=== PATIENT | female | born 1925 | race Caucasian/White ===

== ENCOUNTER 2017-06-22 16:19 | Inpatient (IN) | payer MEDICARE ==
[~2017-06-22] VITALS: Ht 162.6 cm; Wt 81.6 kg
--- NOTE | 2017-06-22 16:24 | NUR ---
DR JOYA AT THE BEDSIDE FOR EVAL AND EXAM.
[2017-06-22] MEDS ORDERED: METH2.5T PO (16:39)
[2017-06-22] MEDS ORDERED: LEVO25TA9 PO (16:39)
[2017-06-22] MEDS ORDERED: ACET-2154 PO (16:39)
[2017-06-22] MEDS ORDERED: PANT40TA2 PO (16:39)
[2017-06-22] MEDS ORDERED: NEBI10TA2 PO (16:39)
[2017-06-22] MEDS ORDERED: FOLI1TAB16 PO (16:39)
[2017-06-22] MEDS ORDERED: ASCO500C16 PO (16:39)
[2017-06-22] MEDS ORDERED: MAGN400O6 PO (16:39)
[2017-06-22] MEDS ORDERED: CELE200C PO (16:39)
[2017-06-22] MEDS ORDERED: AMLO2.5T PO (16:39)
[2017-06-22] MEDS ORDERED: [UNRECOGNIZED DRUG - REMARK] (16:39)
[2017-06-22] MEDS ORDERED: ONDANSETRON IV *ER 4 MG/2 ML VIAL IV ONE (16:45)
[2017-06-22 16:51] LABS: *BILIRUBIN,URIN NEGATIVE (NEGATIVE); *BLOOD, URINE Trace-lysed (NEGATIVE); *CLARITY,URINE CLOUDY (CLEAR); *COLOR,URINE YELLOW (YELLOW); *KETONES,URINE NEGATIVE (NEGATIVE); *PROTEIN,URINE 1+ (NEGATIVE); *UROBILINOGEN,URINE 0.2 E.U./dl (NORMAL); LEUKOCYTE ESTERASE ,URINE 1+ (NEGATIVE); NITRITE, URINE POSITIVE (NEGATIVE); UGLUCOSE NEGATIVE (NEGATIVE)
[2017-06-22 16:57] LABS: BASOPHILS # (AUTO) 0.1 K/uL (0.0-8.0); BASOPHILS % (AUTO) 0.7 % (0.0-2.0); EOSINOPHILS # (AUTO) 0.4 K/uL (0.0-0.7); EOSINOPHILS % (AUTO) 5.7 % (0.0-7.0); HEMATOCRIT 28.6 % (37-47); HEMOGLOBIN 9.8 G/DL (12.0-16.0); LYMPHOCYTES # (AUTO) 1.2 K/UL (0.8-4.8); LYMPHOCYTES % (AUTO) 14.7 % (20.5-51.5); MEAN CORPUSCULAR HEMOGLOBIN 32.8 UUG (27.0-31.0); MEAN CORPUSCULAR HGB CONC 34 g/dL (32.0-37.0); MEAN CORPUSCULAR VOLUME 96.2 FL (81.0-99.0); MONOCYTES # (AUTO) 0.5 K/UL (0.1-1.30); MONOCYTES % (AUTO) 6.9 % (0.0-11.0); NEUTROPHILS # (AUTO) 5.6 K/UL (1.8-8.9); PLATELET COUNT (AUTO) 209 K/UL (150-450); RED BLOOD CELL COUNT(AUTO) 2.97 MIL/UL (4.2-5.4); WHITE BLOOD COUNT (AUTO) 7.9 K/UL (4.0-11.2)
[2017-06-22 17:01] LABS: BACTERIA,URINE MANY /HPF (NONE SEEN); CARBON DIOXIDE 23 mmol/L (21-32); CHLORIDE 97 mmol/L (98-107); GLUCOSE 181 mg/dL (74-106); MUCUS,URINE FEW /LPF (0-FEW); SQUAMOUS EPITHELIAL CELL,UR MODERATE /HPF (NONE SEEN); UREA NITROGEN, BLOOD 19 mg/dL (7-18); WBC,URINE 80-100 /HPF (0-3)
[2017-06-22 17:14] LABS: ALANINE AMINOTRANSFERASE 85 U/L (14-59); ALKALINE PHOSPHATASE 114 U/L (50-136); ASPARTATE AMINOTRANSFERASE 108 U/L (15-37); BILIRUBIN,DIRECT 0.4 mg/dL (0.0-0.2); BILIRUBIN,TOTAL 0.9 mg/dL (0.2-1.0); TOTAL PROTEIN, SERUM 5.9 g/dL (6.4-8.2)
[2017-06-22] MEDS ORDERED: CEFTRIAXONE 1 G in IV DEXTROSE 5% 50 ML IV ONE (17:15)
[2017-06-22] MEDS ORDERED: IV NORMAL SALINE 1000 ML BAG IV ONE (17:15)
--- NOTE | 2017-06-22 17:27 | NUR ---
PT DENIES N/V AND DIZZINESS, STATES FEELING BETTER.
--- NOTE | 2017-06-22 17:28 | NUR ---
MRSA COLLECTED AND SENT TO LAB. NELONGING LIST COMPLETED.
--- NOTE | 2017-06-22 18:15 | NUR ---
Patient admitted from emergency room with compliants of syncopal episode with nausea and vomiting. Patient reportedly felt dizzy after exercising at [employer]. Patient previously went to [facility] with low sodium level. Patient current sodium is 130, remaining low. Patient is on a regular diet. Patient reports using a FWW. Patient is alert and oriented times four but a history of dementia is listed on patient record. Patient IV in patent and flushable. No phlebitis of infiltration noted. Patient denies pain. Family at bedside. Patient on 3 liters nasal cannula. Patient noted to desaturate to 88% when on room air. Awaiting orders from .
[2017-06-22 18:30] VITALS: BP 139/85
--- NOTE | 2017-06-22 19:07 | NUR ---
MD is Felix Snow Dnp. Continuing to await orders will endorse to night RN to follow up and get orders.
[2017-06-22 20:00] VITALS: BP 128/68
[2017-06-22] MEDS ORDERED: ACETAMINOPHEN 325 MG TABLET PO PRN (20:00)
[2017-06-22] MEDS ORDERED: ONDANSETRON 4 MG/2 ML VIAL IV PRN (20:00)
[2017-06-22] MEDS ORDERED: Z GUARD REMEDY PASTE 57 GM TUBE TOP PRN (20:00)
[2017-06-22] MEDS ORDERED: MAGNESIUM HYDROXIDE 30 ML LIQUID UDC PO SCH (20:00)
[2017-06-22] MEDS ORDERED: CEFTRIAXONE 1 G in IV DEXTROSE 5% 50 ML IV SCH (20:00)
--- NOTE | 2017-06-22 20:35 | NUR ---
TROPONIN 1.341,DR. YANG NOTIFIED,PATIENT ALERT,ORIENTED,DENIES CHEST PAIN,BP 128/68,SR RATE 83 BPM,PATIENT REPORTS NO NAUSEA OR DIZZINESS.
[2017-06-22] MEDS ORDERED: ASPIRIN EC 81 MG TABLET.DR PO STA (20:54)
--- NOTE | 2017-06-22 21:30 | NUR ---
ASA 81 MG PO GIVEN, STARTED PATIENT ON HEPARIN DRIP PER PROTOCOL RATE 1200 UNITS/HR=24 ML/HR.WILL RECHECK PTT IN 6 HR PER PROTOCOL, PATIENT WAS EDUCATED VERBALIZED UNDERSTANDING.
[2017-06-22] MEDS: HEPARIN/D5W DRIP 500 ML IV PRN (21:32)
[2017-06-23] VITALS: BP 156/82
[2017-06-23] MEDS ORDERED: CARVEDILOL 6.25 MG TABLET PO SCH (00:15)
--- NOTE | 2017-06-23 02:45 | NUR ---
troponin 1.285 trending down,patient asleep easily arouses,heparin drip going on,closely monitor.
[2017-06-23] MEDS: IV NS 1000 ML 1,000 ML IV PRN ×2 (02:55→16:28)
[2017-06-23 04:00] VITALS: BP 118/66
[2017-06-23] MEDS ORDERED: MAGNESIUM HYDROXIDE 30 ML LIQUID UDC PO PRN (04:00)
--- NOTE | 2017-06-23 04:00 | NUR ---
ptt =107.2,hold heparin drip for 60 min and decrease rate by 250 units/hr.
[2017-06-23 04:02] LABS: ALANINE AMINOTRANSFERASE 104 U/L (14-59); ALKALINE PHOSPHATASE 105 U/L (50-136); ASPARTATE AMINOTRANSFERASE 70 U/L (15-37); BILIRUBIN,TOTAL 0.3 mg/dL (0.2-1.0); CARBON DIOXIDE 27 mmol/L (21-32); CHLORIDE 99 mmol/L (98-107); CHOLESTEROL 135 mg/dL (<200); CREATININE 0.9 mg/dL (0.6-1.3); GLUCOSE 127 mg/dL (74-106); HDL CHOLESTEROL 52 mg/dL (40-60); MAGNESIUM 2.2 mg/dL (1.8-2.4); PHOSPHOROUS 4.3 mg/dL (2.5-4.9); POTASSIUM 4.4 mmol/L (3.5-5.1); TOTAL PROTEIN, SERUM 5.7 g/dL (6.4-8.2); TRIGLYCERIDES 43 MG/DL (30-150); UREA NITROGEN, BLOOD 17 mg/dL (7-18)
[2017-06-23 04:04] LABS: BASOPHILS % (AUTO) 0.5 % (0.0-2.0); EOSINOPHILS % (AUTO) 1.4 % (0.0-7.0); HEMATOCRIT 26.8 % (37-47); LYMPHOCYTES % (AUTO) 10.2 % (20.5-51.5); MEAN CORPUSCULAR HEMOGLOBIN 32.3 UUG (27.0-31.0); MEAN CORPUSCULAR HGB CONC 34 g/dL (32.0-37.0); MEAN CORPUSCULAR VOLUME 96.2 FL (81.0-99.0); MONOCYTES % (AUTO) 6.7 % (0.0-11.0); NEUTROPHILS % (AUTO) 81.2 % (38.5-71.5); PLATELET COUNT (AUTO) 199 K/UL (150-450); RED BLOOD CELL COUNT(AUTO) 2.78 MIL/UL (4.2-5.4); WHITE BLOOD COUNT (AUTO) 7.8 K/UL (4.0-11.2)
[2017-06-23 04:05] LABS: EOSINOPHILS # (AUTO) 0.1 K/uL (0.0-0.7); LYMPHOCYTES # (AUTO) 0.8 K/UL (0.8-4.8); MONOCYTES # (AUTO) 0.5 K/UL (0.1-1.30); NEUTROPHILS # (AUTO) 6.4 K/UL (1.8-8.9)
[2017-06-23 04:09] LABS: THYROID STIMULATING HORMONE 3.105 mIU/mL (0.358-3.740)
[2017-06-23] MEDS: LEVOTHYROXINE SODIUM 25 MCG TABLET PO SCH (06:45)
[2017-06-23] MEDS: PANTOPRAZOLE SODIUM 40 MG TABLET.DR PO SCH (06:45)
--- NOTE | 2017-06-23 08:30 | NUR ---
RECEIVED PATIENT IN BED AWAKE ALERT AND ORIENTED WITH HEPARIN DRIP IN PROGRESS AT 19ML/HR WITH NO S/S OF BLEEDING AT THIS TIME.MADE COMFORTABLE WITH NO DISTRESS AT THIS TIME.
[2017-06-23] MEDS: AMLODIPINE 2.5 MG TABLET PO SCH (08:33)
[2017-06-23] MEDS: FOLIC ACID 1 MG TABLET PO SCH (08:34)
[2017-06-23] MEDS: CARVEDILOL 6.25 MG TABLET PO SCH ×2 (08:34→17:18)
[2017-06-23] MEDS ORDERED: HEPARIN SODIUM,PORCINE 5,000 UNITS/ML VIAL IV PRN (08:45)
[2017-06-23] MEDS ORDERED: LEVOTHYROXINE SODIUM 25 MCG TABLET PO SCH (09:00)
[2017-06-23] MEDS ORDERED: PANTOPRAZOLE SODIUM 40 MG TABLET.DR PO SCH (09:00)
[2017-06-23] MEDS ORDERED: CELECOXIB 200 MG CAPSULE PO SCH (09:00)
[2017-06-23 11:07] VITALS: BP 117/51
--- NOTE | 2017-06-23 12:22 | NUR ---
PTT RESULT AT 12 NN IS 67.8, NO CHANGE DONE ON HEPARIN INFUSION. MAINTAINED AT CURRENT RATE AT 950 U/KG. NEXT PTT CHECK ON 06/24/17 AT 0600 HRS ORDERED. ORDERED SHEET FAXED TO PHARMACY.
--- NOTE | 2017-06-23 14:42 | NUR ---
ECHO WAS DONE RESULTS SHOWED RT VENTRICULAR DYSFUNCTION. ORDERED FOR CTA TO R/O PULMONARY EMBOLISM ORDERED. GIVEN ASPIRIN ORDERED. PROCEDURE EXPLAINED TO THE PATIENT AND CONSENT SIGNED ALSO AT BEDSIDE. WILL CONT TO MONITOR.
[2017-06-23] MEDS: ASPIRIN EC 325 MG TABLET.DR PO SCH (14:49)
[2017-06-23 15:19] VITALS: BP 108/52
[2017-06-23] MEDS ORDERED: CEFTRIAXONE 1 G in IV DEXTROSE 5% 50 ML IV SCH (17:00)
[2017-06-23] MEDS ORDERED: IOHEXOL 350 100 ML INFUS..BTL ONE (17:26)
[2017-06-23] MEDS ORDERED: NORMAL SALINE FLUSH 10 ML DISP.SYRIN ONE (17:26)
[2017-06-23] MEDS ORDERED: IV NORMAL SALINE 250 ML IV ONE (17:26)
--- NOTE | 2017-06-23 17:52 | NUR ---
PATIENT IS OUT FOR CT ANGIO VIA BED. BP STABLE, GIVEN BP MEDS BEFORE TRANSPORT. NO OTHER COMPLAINT.
--- NOTE | 2017-06-23 18:35 | NUR ---
PATIENT IS BACK FROM CT [facility], AWAITING FOR RESULTS.
--- NOTE | 2017-06-23 19:40 | NUR ---
CTA CHEST RESULTS ;EXTENSIVE BILATERAL PULMONARY EMBOLI WAS NOTIFIED,NO NEW ORDER,PATIENT RESTING COMFORTABLE NO S/S OF DISTRESS,V/S STABLE,NO C/O CHEST PAIN.NAUSEA OR DIZZINESS,NSR WITH INCOMPLETE RBB.
[2017-06-23 20:00] VITALS: BP 99/72
--- NOTE | 2017-06-23 21:00 | NUR ---
TROPONIN 0.392 TRENDING DOWN,PATIENT ASLEEP,CONTINUE HEPARIN DRIP AT 950 UNITS/HR ORDER,CLOSELY MONITOR.
[2017-06-23] MEDS: HEPARIN/D5W DRIP 500 ML IV PRN (22:43)
[2017-06-24] VITALS: BP 140/63
[2017-06-24 04:00] VITALS: BP 149/67
--- NOTE | 2017-06-24 06:00 | NUR ---
patient in no acute distress,NSR on monitor,patient tries to blow out the nose,states i always have sinus problem,scant of blood noted,off o2,o2 sat 94% room air,instructed patient regarding bleeding precautions.
[2017-06-24] MEDS: LEVOTHYROXINE SODIUM 25 MCG TABLET PO SCH (06:27)
[2017-06-24] MEDS: PANTOPRAZOLE SODIUM 40 MG TABLET.DR PO SCH (06:27)
[2017-06-24 06:42] LABS: BASOPHILS # (AUTO) 0.1 K/uL (0.0-8.0); BASOPHILS % (AUTO) 1.1 % (0.0-2.0); EOSINOPHILS # (AUTO) 0.5 K/uL (0.0-0.7); EOSINOPHILS % (AUTO) 8.6 % (0.0-7.0); HEMATOCRIT 26.7 % (37-47); LYMPHOCYTES # (AUTO) 0.9 K/UL (0.8-4.8); MEAN CORPUSCULAR HEMOGLOBIN 32.8 UUG (27.0-31.0); MEAN CORPUSCULAR HGB CONC 34 g/dL (32.0-37.0); MEAN CORPUSCULAR VOLUME 97.5 FL (81.0-99.0); MONOCYTES # (AUTO) 0.6 K/UL (0.1-1.30); MONOCYTES % (AUTO) 10.6 % (0.0-11.0); NEUTROPHILS # (AUTO) 3.3 K/UL (1.8-8.9); NEUTROPHILS % (AUTO) 63.7 % (38.5-71.5); PLATELET COUNT (AUTO) 214 K/UL (150-450); RED BLOOD CELL COUNT(AUTO) 2.74 MIL/UL (4.2-5.4)
[2017-06-24 06:49] LABS: WHITE BLOOD COUNT (AUTO) 5.4 K/UL (4.0-11.2)
[2017-06-24 07:08] LABS: CARBON DIOXIDE 28 mmol/L (21-32); CHLORIDE 102 mmol/L (98-107); CREATININE 0.9 mg/dL (0.6-1.3); GLUCOSE 112 mg/dL (74-106); MAGNESIUM 2.2 mg/dL (1.8-2.4); PHOSPHOROUS 3.9 mg/dL (2.5-4.9); POTASSIUM 4.4 mmol/L (3.5-5.1); UREA NITROGEN, BLOOD 14 mg/dL (7-18)
[2017-06-24] MEDS: IV NS 1000 ML 1,000 ML IV PRN ×2 (08:13→23:03)
[2017-06-24] MEDS: ASPIRIN EC 325 MG TABLET.DR PO SCH (08:13)
[2017-06-24] MEDS: AMLODIPINE 2.5 MG TABLET PO SCH (08:15)
[2017-06-24] MEDS: FOLIC ACID 1 MG TABLET PO SCH (08:15)
[2017-06-24] MEDS: CARVEDILOL 6.25 MG TABLET PO SCH ×2 (08:15→18:22)
[2017-06-24] MEDS: HEPARIN/D5W DRIP 500 ML IV PRN (09:57)
--- NOTE | 2017-06-24 11:21 | NUR ---
RESULTS OF CTA CHEST RELAYED TO DR YANG SAID TO CONTINUE HEPARIN DRIP HOLD PT TILL VENOUS DUPPLER STUDY OF IRIS LE RESULTS COMES IN
[2017-06-24 11:52] VITALS: BP 140/68
[2017-06-24] MEDS ORDERED: RIVAROXABAN 15 MG TABLET PO SCH (12:45)
--- NOTE | 2017-06-24 14:00 | NUR ---
DR YANG DCD HEPARIN DRIP AND WILL START ON XERALTO AND PO KEFLEX
[2017-06-24] MEDS: CEPHALEXIN MONOHYDRATE 250 MG CAPSULE PO SCH ×2 (14:41→20:57)
[2017-06-24] MEDS ORDERED: RIVAROXABAN 15 MG TABLET PO ONE ×2 (15:00→22:00)
[2017-06-24 16:00] VITALS: BP 137/69
--- NOTE | 2017-06-24 17:00 | NUR ---
SEEN BY DR GODDARD CHANGED PATIENT STATUS TO MEDSURG, PT DENIES CHEST PAIN OR SOB, CONTINUE WITH CLOSE MONITORING/OBSERVATION.
--- NOTE | 2017-06-24 19:40 | NUR ---
PT RECEIVED IN BED, AWAKE. A/OX4. ABLE TO MAKE NEEDS KNOWN. V/S STABLE. IN NO ACUTE DISTRESS. NO C/O PAIN AT THIS TIME. IVF INFUSING. SAFETY MEASURES IMPLEMENTED. BED ALARM IN PLACE. CALL LIGHT WITHIN REACH.
[2017-06-24 20:00] VITALS: BP 154/70
[2017-06-25 04:41] VITALS: BP 146/67
[2017-06-25] MEDS: CEPHALEXIN MONOHYDRATE 250 MG CAPSULE PO SCH ×2 (06:17→13:53)
[2017-06-25] MEDS: PANTOPRAZOLE SODIUM 40 MG TABLET.DR PO SCH (06:17)
[2017-06-25] MEDS: LEVOTHYROXINE SODIUM 25 MCG TABLET PO SCH (06:17)
--- NOTE | 2017-06-25 06:40 | NUR ---
END OF SHIFT NOTES. PT SLEPT WELL THROUGHOUT SHIFT. IN STABLE CONDITION. IVF INFUSING. 2LNC WITH NO COMPLAINTS OF SOB. NEEDS ATTENDED. SAFETY MAINTAINED. CALL LIGHT WITHIN REACH.
--- NOTE | 2017-06-25 07:30 | NUR ---
AWAKE ALERT AND VERBALLY RESPONSIVE, NO SIGNS OF PAIN OR DISTRESS. WILL CONTINUE OBSERVATION
[2017-06-25] MEDS: AMLODIPINE 2.5 MG TABLET PO SCH (08:32)
[2017-06-25] MEDS: RIVAROXABAN 15 MG TABLET PO SCH ×2 (08:32→16:35)
[2017-06-25] MEDS: FOLIC ACID 1 MG TABLET PO SCH (08:32)
[2017-06-25] MEDS: CARVEDILOL 6.25 MG TABLET PO SCH ×2 (08:33→16:34)
[2017-06-25] MEDS ORDERED: ASPIRIN EC 325 MG TABLET.DR PO SCH (09:00)
[2017-06-25 09:23] LABS: BASOPHILS # (AUTO) 0.1 K/uL (0.0-8.0); BASOPHILS % (AUTO) 0.9 % (0.0-2.0); EOSINOPHILS # (AUTO) 0.4 K/uL (0.0-0.7); EOSINOPHILS % (AUTO) 6.3 % (0.0-7.0); HEMATOCRIT 27.9 % (37-47); HEMOGLOBIN 9.5 G/DL (12.0-16.0); LYMPHOCYTES # (AUTO) 0.7 K/UL (0.8-4.8); MEAN CORPUSCULAR HEMOGLOBIN 32.6 UUG (27.0-31.0); MEAN CORPUSCULAR HGB CONC 34 g/dL (32.0-37.0); MONOCYTES # (AUTO) 0.5 K/UL (0.1-1.30); MONOCYTES % (AUTO) 8.5 % (0.0-11.0); NEUTROPHILS # (AUTO) 4.6 K/UL (1.8-8.9); NEUTROPHILS % (AUTO) 73.3 % (38.5-71.5); PLATELET COUNT (AUTO) 248 K/UL (150-450); WHITE BLOOD COUNT (AUTO) 6.3 K/UL (4.0-11.2)
[2017-06-25 09:39] LABS: CARBON DIOXIDE 30 mmol/L (21-32); CHLORIDE 104 mmol/L (98-107); CREATININE 0.7 mg/dL (0.6-1.3); GLUCOSE 100 mg/dL (74-106); PHOSPHOROUS 3.7 mg/dL (2.5-4.9); POTASSIUM 4.4 mmol/L (3.5-5.1); UREA NITROGEN, BLOOD 8 mg/dL (7-18)
[2017-06-25 12:07] VITALS: BP 167/62
[2017-06-25] MEDS: IV NS 1000 ML 1,000 ML IV PRN (13:09)
--- NOTE | 2017-06-25 13:28 | NUR ---
NO ACUTE CHANGE, RESTING COMFORTABLY IN BED
[2017-06-25] MEDS ORDERED: RIVA15TA PO (15:31)
[2017-06-25] MEDS ORDERED: CEPH250C PO (15:31)
[2017-06-25 16:00] VITALS: BP 160/74
[2017-06-25 16:34] VITALS: BP 145/65
--- NOTE | 2017-06-25 16:58 | NUR ---
Discharge Plan: Once medically cleared patient will be discharged back to [facility] [[id number] [place] [address] Room 105]. Spoke with Esequiel [ ] who is aware and agreeable with discharge plans. Patient will be transported via ambulance.
[2017-06-25] MEDS ORDERED: FUROSEMIDE 20 MG/2 ML VIAL IV ONE (17:00)
--- NOTE | 2017-06-25 17:48 | NUR ---
SEEN BY DR SHAWN YANG WITH ORDER TO DISCHARGE TO [facility]. REPORT GIVEN TO CYNTHIA HAMILTON AT [facility]
--- NOTE | 2017-06-25 18:54 | NUR ---
DISCHARGED TO [facility] VIA AMBULANCE STABLE
== END 2017-06-25 18:57 | DRG 175 ==
LOC: ER 16:21 → TELE 17:48 → MED 06-24 16:38
PROVIDERS: ADMIT Nurse Practitioner Acute Care; ATTEND Nurse Practitioner Acute Care
DX: I26.99 Other pulmonary embolism without acute cor pulmonale (principal); I21.4 Non-ST elevation (NSTEMI) myocardial infarction; I50.33 Acute on chronic diastolic (congestive) heart failure; I95.89 Other hypotension; E87.1 Hypo-osmolality and hyponatremia; I27.2 Other secondary pulmonary hypertension; N39.0 Urinary tract infection, site not specified; I07.1 Rheumatic tricuspid insufficiency; F03.90 Unspecified dementia, unspecified severity, without behavioral disturbance, psychotic disturbance, mood disturbance, and anxiety; Z79.899 Other long term (current) drug therapy; Z90.49 Acquired absence of other specified parts of digestive tract; B96.20 Unspecified Escherichia coli [E. coli] as the cause of diseases classified elsewhere; E03.9 Hypothyroidism, unspecified; M19.90 Unspecified osteoarthritis, unspecified site; M06.9 Rheumatoid arthritis, unspecified; T50.2X5D Adverse effect of carbonic-anhydrase inhibitors, benzothiadiazides and other diuretics, subsequent encounter; I11.0 Hypertensive heart disease with heart failure; D64.9 Anemia, unspecified
CPT/HCPCS: 36415; 70030-TC; 70450; 71010; 71275; 82533; 83605; 83735; 84100; 84300; 84443; 84520; 85025; 85730; 87040; 87077; 87086; 93307; A4663; C1758; J0696; J1644; J1940; J2405; J3490; J7030; J7050; J7060; Q9967

== ENCOUNTER 2017-07-10 22:30 | Inpatient (IN) | payer MEDICARE ==
[~2017-07-10] VITALS: Ht 182.9 cm; Wt 77.1 kg
[~2017-07-10 22:30] MED LIST: ACET-2154 PO; AMLO2.5T PO; ASCO500C16 PO; CELE200C PO; CEPH250C PO; FOLI1TAB16 PO; LEVO25TA9 PO; MAGN400O6 PO; METH2.5T PO; NEBI10TA2 PO; PANT40TA2 PO; RIVA15TA PO; [UNRECOGNIZED DRUG - REMARK]
[2017-07-10] MEDS ORDERED: CALC-995 PO (22:59)
[2017-07-10] MEDS ORDERED: NA P133E RC (22:59)
[2017-07-10] MEDS ORDERED: TELM20TA PO (22:59)
[2017-07-10] MEDS ORDERED: MULT1TAB11 PO (22:59)
[2017-07-10] MEDS ORDERED: BISA10SU12 RC (22:59)
[2017-07-10] MEDS ORDERED: IV NORMAL SALINE 500 ML BAG IV ONE (23:00)
[2017-07-10 23:20] LABS: BASOPHILS # (AUTO) 0.1 K/uL (0.0-8.0); BASOPHILS % (AUTO) 0.8 % (0.0-2.0); EOSINOPHILS # (AUTO) 0.3 K/uL (0.0-0.7); EOSINOPHILS % (AUTO) 4.4 % (0.0-7.0); LYMPHOCYTES # (AUTO) 1.1 K/UL (0.8-4.8); LYMPHOCYTES % (AUTO) 14.6 % (20.5-51.5); MEAN CORPUSCULAR HEMOGLOBIN 32.8 UUG (27.0-31.0); MEAN CORPUSCULAR HGB CONC 33 g/dL (32.0-37.0); MEAN CORPUSCULAR VOLUME 98.4 FL (81.0-99.0); MONOCYTES # (AUTO) 0.7 K/UL (0.1-1.30); MONOCYTES % (AUTO) 9.5 % (0.0-11.0); NEUTROPHILS # (AUTO) 5.5 K/UL (1.8-8.9); NEUTROPHILS % (AUTO) 70.7 % (38.5-71.5); PLATELET COUNT (AUTO) 362 K/UL (150-450); WHITE BLOOD COUNT (AUTO) 7.7 K/UL (4.0-11.2)
[2017-07-10 23:22] LABS: HEMATOCRIT 21.2 % (37-47); RED BLOOD CELL COUNT(AUTO) 2.15 MIL/UL (4.2-5.4)
[2017-07-10 23:23] LABS: HEMOGLOBIN 7.1 G/DL (12.0-16.0)
[2017-07-10 23:29] LABS: CARBON DIOXIDE 28 mmol/L (21-32); CHLORIDE 106 mmol/L (98-107); CREATININE 1.3 mg/dL (0.6-1.3); GLUCOSE 120 mg/dL (74-106); POTASSIUM 3.6 mmol/L (3.5-5.1); UREA NITROGEN, BLOOD 24 mg/dL (7-18)
[2017-07-10 23:35] LABS: ALANINE AMINOTRANSFERASE 18 U/L (14-59); ALKALINE PHOSPHATASE 56 U/L (50-136); ASPARTATE AMINOTRANSFERASE 15 U/L (15-37); BILIRUBIN,DIRECT 0.2 mg/dL (0.0-0.2); BILIRUBIN,TOTAL 0.5 mg/dL (0.2-1.0); LIPASE 126 U/L (73-393)
--- NOTE | 2017-07-10 23:51 | NUR ---
Pt. admitted to Telemetry 204, under care of Dr. Felix Snow Belongs List completed
[2017-07-11] VITALS (9 sets, daily range): BP systolic 113–154; BP diastolic 46–74
[2017-07-11] MEDS ORDERED: BISACODYL 10 MG SUPP.RECT RC PRN (00:15)
[2017-07-11] MEDS ORDERED: ACETAMINOPHEN 325 MG TABLET PO PRN (00:30)
[2017-07-11] MEDS ORDERED: ONDANSETRON 4 MG/2 ML VIAL IV PRN (00:30)
--- NOTE | 2017-07-11 03:47 | NUR ---
RECEIVED PATIENT FROM ED ADMITTED DUE TO GI BLEEDING WITH LOW H&H. AWAKE, ALERT AN ORIENTED X4. VSS. ORIENTED ABOUT THE ROOM FACILITIES. NOTIFIED HEAD CONTROL CLERK ABOUT ADMISSION. STARTED TRANSFUSION OF 1 U RBC FOR HGB 7.1 AND HCT 21.2 ADVISED PATIENT TO NOTIFY THE HVAC SHEET METAL INSTALLER IF SHE EXPERIENCE , ITCHINESS OR LOW BACK PAIN. NO BLOOD TRANSFUSION REACTION NOTED AT THIS TIME, VS HAS BEEN STABLE. MRSA SWAB SENT TO LAB. OTHERWISE PATIENT IS SLEEPING AT THIS TIME. WILL KEEP MONITORED.
[2017-07-11] MEDS: IV NS 1000 ML 1,000 ML IV PRN ×2 (05:42→18:02)
--- NOTE | 2017-07-11 05:54 | NUR ---
COMPLETE AND ENDED BLOOD TRANSFUSION 1 U PRBC WITH NO BLOOD TRANSFUSION REACTION. VSS. UA SENT. STARTED NS INFUSION 75ML/HR ORDERED. OTHERWISE PATIENT SLEPT INTERMITTENTLY THROUGH THE NIGHT. NOTED RASHES/REDNESS ON SACRAL AREA ORDERED FOR BARRIER CREAM. PHOTO TAKEN PLACED IN THE CHART.
[2017-07-11 07:28] LABS: BASOPHILS % (AUTO) 0.6 % (0.0-2.0); EOSINOPHILS # (AUTO) 0.3 K/uL (0.0-0.7); HEMATOCRIT 27.2 % (37-47); HEMOGLOBIN 8.8 G/DL (12.0-16.0); LYMPHOCYTES # (AUTO) 1.2 K/UL (0.8-4.8); LYMPHOCYTES % (AUTO) 14.8 % (20.5-51.5); MEAN CORPUSCULAR HEMOGLOBIN 31.1 UUG (27.0-31.0); MEAN CORPUSCULAR HGB CONC 32 g/dL (32.0-37.0); MEAN CORPUSCULAR VOLUME 96.3 FL (81.0-99.0); MONOCYTES # (AUTO) 0.6 K/UL (0.1-1.30); MONOCYTES % (AUTO) 7.7 % (0.0-11.0); NEUTROPHILS # (AUTO) 6.1 K/UL (1.8-8.9); NEUTROPHILS % (AUTO) 72.9 % (38.5-71.5); PLATELET COUNT (AUTO) 348 K/UL (150-450); RED BLOOD CELL COUNT(AUTO) 2.82 MIL/UL (4.2-5.4); WHITE BLOOD COUNT (AUTO) 8.2 K/UL (4.0-11.2)
--- NOTE | 2017-07-11 08:00 | NUR ---
S/P BLOOD TRANSFUSSION WITH NO ADVERSE OR ALLERGIC REACTIONS PATIENT ASSISTED WITH ADL AMBULATED TO THE BATHROOM WITH ASSISTANCE AND TOLERATED WELL.NO S/S OF BLEEDING AT THIS TIME.
[2017-07-11] MEDS: Z GUARD REMEDY PASTE 57 GM TUBE TOP SCH ×2 (08:32→21:05)
[2017-07-11] MEDS: PANTOPRAZOLE SODIUM 40 MG TABLET.DR PO SCH (08:33)
[2017-07-11] MEDS: CARVEDILOL 6.25 MG TABLET PO SCH ×2 (08:33→17:18)
[2017-07-11] MEDS: AMLODIPINE 2.5 MG TABLET PO SCH (08:33)
[2017-07-11] MEDS: LEVOTHYROXINE SODIUM 25 MCG TABLET PO SCH (08:33)
[2017-07-11] MEDS: VALSARTAN 40 MG TABLET PO SCH (08:34)
[2017-07-11 10:17] LABS: *BILIRUBIN,URIN NEGATIVE (NEGATIVE); *BLOOD, URINE Trace-lysed (NEGATIVE); *CLARITY,URINE CLEAR (CLEAR); *COLOR,URINE STRAW (YELLOW); *KETONES,URINE NEGATIVE (NEGATIVE); *PROTEIN,URINE NEGATIVE (NEGATIVE); *UROBILINOGEN,URINE 0.2 E.U./dl (NORMAL); LEUKOCYTE ESTERASE ,URINE 1+ (NEGATIVE); NITRITE, URINE NEGATIVE (NEGATIVE); UGLUCOSE NEGATIVE (NEGATIVE)
[2017-07-11 10:38] LABS: BACTERIA,URINE FEW /HPF (NONE SEEN); RBC,URINE 0-3 /HPF (0-3); SQUAMOUS EPITHELIAL CELL,UR MODERATE /HPF (NONE SEEN)
--- NOTE | 2017-07-11 11:34 | NUR ---
PATIENT SEEN BY DR YASMANY WHITE WITH ORDER TO CHANGE DIET TO CLEAR LIQUIDS STATED THAT DR LOZANO THE GASTRO ENTEROLOGIST WILL CONSULT WITH THE PATIENT TODAY.
[2017-07-11] MEDS ORDERED: BISACODYL 5 MG TABLET.DR PO ONE (13:30)
[2017-07-11] MEDS ORDERED: GOLYTELY 4000 ML BOTTLE PO ONE (13:30)
--- NOTE | 2017-07-11 13:30 | NUR ---
PATIENT SEEN AND EXAMINED BY DR LOZANO WITH ORDER FOR EGD/COLONOSCOPY IN AM PATIENT AWARE.
[2017-07-11 13:34] LABS: CARBON DIOXIDE 25 mmol/L (21-32); CHLORIDE 105 mmol/L (98-107); CREATININE 1.1 mg/dL (0.6-1.3); GLUCOSE 104 mg/dL (74-106); PHOSPHOROUS 3.5 mg/dL (2.5-4.9); POTASSIUM 4.2 mmol/L (3.5-5.1); UREA NITROGEN, BLOOD 20 mg/dL (7-18)
--- NOTE | 2017-07-11 18:00 | NUR ---
CONSCENT FOR EGD/COLONOSCOPY OBTAINED AND PLACED IN THE CHART BOWEL PREP HAS STARTED WITH GOLYTELY ORDERED BUT PATIENT COMPLAINED OF NAUSEA WAS MEDICATED WITH ZOFRAN ORDERED AND WILL OBSERVE.SHE IS ENCOURAGED TO CONTINUE TO DRINK THE GOLYTELY ABLE AND SHE HAS EXPRESSED UNDERSTANDING.WILL CONTINUE TO OBSERVE.
--- NOTE | 2017-07-11 19:30 | NUR ---
Report received. Patient AAO, mildly hard of hearing but cooperative. With on going bowel prep for procedure tomorrow. To BSC every now and then.; with liquid dark brown green stools. EGD, colonoscopy and NPO after midnoc discussed with patient. Verbalized understanding. Addendum: 07/11/17 at 0084 by BUSTER CHOW RN Amended: Links added.
--- NOTE | 2017-07-11 21:00 | NUR ---
Tolerating Golytely fairly well. Still on the BSC every now and then; liquid stools now yellow greenish. Addendum: 07/11/17 at 2334 by BUSTER CHOW RN Amended: Links added.
--- NOTE | 2017-07-11 22:30 | NUR ---
PM care provided; patient cooperative. Rudy completed. Addendum: 07/11/17 at 2336 by BUSTER CHOW RN Amended: Links added.
[2017-07-12] VITALS: BP 137/62
--- NOTE | 2017-07-12 | NUR ---
Sleeping; tele monitor SB-SR rate 54-69.
[2017-07-12 04:00] VITALS: BP 155/70
--- NOTE | 2017-07-12 05:00 | NUR ---
Patient awake. Tap water enema till clear done. Bath given; skin care provided. Patient cooperative.
[2017-07-12] MEDS: IV NS 1000 ML 1,000 ML IV PRN (06:25)
[2017-07-12] MEDS: PANTOPRAZOLE SODIUM 40 MG TABLET.DR PO SCH (06:25)
[2017-07-12] MEDS: LEVOTHYROXINE SODIUM 25 MCG TABLET PO SCH (06:25)
[2017-07-12 06:34] LABS: IRON, SERUM 37 ug/dL (50-175)
[2017-07-12 06:41] LABS: CARBON DIOXIDE 27 mmol/L (21-32); CHLORIDE 107 mmol/L (98-107); CHOLESTEROL 142 mg/dL (<200); CREATININE 0.9 mg/dL (0.6-1.3); GLUCOSE 107 mg/dL (74-106); HDL CHOLESTEROL 52 mg/dL (40-60); MAGNESIUM 1.9 mg/dL (1.8-2.4); POTASSIUM 3.9 mmol/L (3.5-5.1); TRIGLYCERIDES 64 MG/DL (30-150); UREA NITROGEN, BLOOD 14 mg/dL (7-18)
--- NOTE | 2017-07-12 06:45 | NUR ---
Up to BSC with assist. Voided clear yellow urine. Stools liquid clear. Back to bed without problem. Kept NPO after midnoc. IV infusing well.
[2017-07-12 07:01] LABS: BASOPHILS # (AUTO) 0.1 K/uL (0.0-8.0); BASOPHILS % (AUTO) 1.2 % (0.0-2.0); EOSINOPHILS # (AUTO) 0.3 K/uL (0.0-0.7); EOSINOPHILS % (AUTO) 4.8 % (0.0-7.0); HEMATOCRIT 25.7 % (37-47); HEMOGLOBIN 8.6 G/DL (12.0-16.0); LYMPHOCYTES # (AUTO) 1.2 K/UL (0.8-4.8); LYMPHOCYTES % (AUTO) 17.7 % (20.5-51.5); MEAN CORPUSCULAR HEMOGLOBIN 32.3 UUG (27.0-31.0); MEAN CORPUSCULAR HGB CONC 34 g/dL (32.0-37.0); MEAN CORPUSCULAR VOLUME 96.3 FL (81.0-99.0); MONOCYTES # (AUTO) 0.6 K/UL (0.1-1.30); MONOCYTES % (AUTO) 8.6 % (0.0-11.0); NEUTROPHILS # (AUTO) 4.7 K/UL (1.8-8.9); NEUTROPHILS % (AUTO) 67.7 % (38.5-71.5); PLATELET COUNT (AUTO) 347 K/UL (150-450); RED BLOOD CELL COUNT(AUTO) 2.67 MIL/UL (4.2-5.4); WHITE BLOOD COUNT (AUTO) 6.9 K/UL (4.0-11.2)
[2017-07-12 07:10] LABS: THYROID STIMULATING HORMONE 4.745 mIU/mL (0.358-3.740)
--- NOTE | 2017-07-12 07:30 | NUR ---
awake alert and oriented x3, aware about plan of care, egd and colonoscopy, npo observe no sob or signs of pain
[2017-07-12] MEDS: CARVEDILOL 6.25 MG TABLET PO SCH ×2 (07:40→17:57)
--- NOTE | 2017-07-12 08:17 | NUR ---
TO GI LAB FOR EGD/COLONOSCOPY VIA BED WITH GI STAFF
[2017-07-12] MEDS: AMLODIPINE 2.5 MG TABLET PO SCH (11:02)
[2017-07-12] MEDS: VALSARTAN 40 MG TABLET PO SCH (11:02)
[2017-07-12] MEDS: Z GUARD REMEDY PASTE 57 GM TUBE TOP SCH ×2 (11:03→21:00)
--- NOTE | 2017-07-12 11:30 | NUR ---
back in room awake alert, keep NPO for abdominal series
[2017-07-12 11:40] VITALS: BP 126/57
--- NOTE | 2017-07-12 14:30 | NUR ---
TO XRAY FOR BARIUM ENEMA
[2017-07-12] MEDS ORDERED: LIDOCAINE HCL 2% 20 ML VIAL MC ONE (14:44)
[2017-07-12] MEDS ORDERED: IV NORMAL SALINE 1000 ML BAG IV ONE (14:44)
[2017-07-12] MEDS ORDERED: PROPOFOL 200 MG/20 ML BOTTLE IV ONE (14:44)
[2017-07-12 16:00] VITALS: BP 128/59
[2017-07-12 20:22] VITALS: BP 110/47
--- NOTE | 2017-07-12 23:18 | NUR ---
RECEIVED PATIENT COMFORTABLE IN BED. AWAKE AND ORIENTED X4. VSS. REMOVED IV CANNULA OVER RIGHT AC DUE TO LEAKING, REINSERTED ON R FOREARM. OTHERWISE PATIENT IS SLEEPING AT THIS TIME. NO SIGNS OF ACTIVE BLEEDING NOTED.
[2017-07-13] VITALS (12 sets, daily range): BP systolic 127–166; BP diastolic 47–76
[2017-07-13] MEDS: IV NS 1000 ML 1,000 ML IV PRN (04:20)
--- NOTE | 2017-07-13 05:12 | NUR ---
PATIENT SLEPT GOOD THROUGH THE NIGHT. VSS. PATIENT GETS MILD SOB GETTING OUT OF BED TO BSC OTHERWISE NO RESPIRATORY DISTRESS NOTED. KEPT SAFE AND COMFORTABLE. NEEDS ATTENDED.
[2017-07-13] MEDS: PANTOPRAZOLE SODIUM 40 MG TABLET.DR PO SCH ×2 (06:00→16:49)
[2017-07-13] MEDS: LEVOTHYROXINE SODIUM 25 MCG TABLET PO SCH (06:00)
[2017-07-13 06:31] LABS: BASOPHILS % (AUTO) 0.8 % (0.0-2.0); EOSINOPHILS # (AUTO) 0.2 K/uL (0.0-0.7); EOSINOPHILS % (AUTO) 3.8 % (0.0-7.0); HEMOGLOBIN 7.6 G/DL (12.0-16.0); LYMPHOCYTES # (AUTO) 0.8 K/UL (0.8-4.8); LYMPHOCYTES % (AUTO) 14.6 % (20.5-51.5); MEAN CORPUSCULAR HEMOGLOBIN 32.6 UUG (27.0-31.0); MEAN CORPUSCULAR HGB CONC 34 g/dL (32.0-37.0); MEAN CORPUSCULAR VOLUME 96.5 FL (81.0-99.0); MONOCYTES # (AUTO) 0.6 K/UL (0.1-1.30); NEUTROPHILS # (AUTO) 4.1 K/UL (1.8-8.9); NEUTROPHILS % (AUTO) 70.8 % (38.5-71.5); PLATELET COUNT (AUTO) 320 K/UL (150-450); WHITE BLOOD COUNT (AUTO) 5.7 K/UL (4.0-11.2)
[2017-07-13 06:44] LABS: HEMATOCRIT 22.5 % (37-47); RED BLOOD CELL COUNT(AUTO) 2.33 MIL/UL (4.2-5.4)
[2017-07-13 06:53] LABS: ALANINE AMINOTRANSFERASE 16 U/L (14-59); ALKALINE PHOSPHATASE 51 U/L (50-136); ASPARTATE AMINOTRANSFERASE 16 U/L (15-37); BILIRUBIN,TOTAL 0.5 mg/dL (0.2-1.0); CARBON DIOXIDE 26 mmol/L (21-32); CHLORIDE 109 mmol/L (98-107); CREATININE 0.9 mg/dL (0.6-1.3); GLUCOSE 100 mg/dL (74-106); MAGNESIUM 1.7 mg/dL (1.8-2.4); PHOSPHOROUS 3.1 mg/dL (2.5-4.9); POTASSIUM 3.4 mmol/L (3.5-5.1); TOTAL PROTEIN, SERUM 5.3 g/dL (6.4-8.2); UREA NITROGEN, BLOOD 7 mg/dL (7-18)
--- NOTE | 2017-07-13 06:55 | NUR ---
CRITICAL LAB RESULT RECEIVED FR LAB HCT AND HGB OF 22.5 AND 7.6 NOTED TO DOCTOR NURSE MANAGER AT 0651 HRS. NO ACTIVE SIGNS OF BLEEDING NOTED.
--- NOTE | 2017-07-13 07:31 | NUR ---
VERBAL ORDERED FOR TRANSFUSION OF [address] DAN, ORDER WAS PLACED.
[2017-07-13] MEDS: CARVEDILOL 6.25 MG TABLET PO SCH ×2 (08:34→20:29)
[2017-07-13] MEDS: Z GUARD REMEDY PASTE 57 GM TUBE TOP SCH ×2 (09:01→20:44)
[2017-07-13] MEDS: VALSARTAN 40 MG TABLET PO SCH (09:56)
[2017-07-13] MEDS: AMLODIPINE 2.5 MG TABLET PO SCH (09:56)
[2017-07-13] MEDS ORDERED: POTASSIUM CHLORIDE 20 MEQ TAB.PRT.SR PO ONE (10:30)
[2017-07-13] MEDS ORDERED: hydrALAZINE HCL 25 MG TABLET PO PRN (10:30)
[2017-07-13] MEDS ORDERED: MAGNESIUM OXIDE 400 MG TABLET PO ONE (10:30)
--- NOTE | 2017-07-13 12:54 | NUR ---
1 UNIT PRBC STARTED. NO REACTIONS NOTED AT THIS TIME. WILL CONTINUE TO MONITOR CLOSELY
--- NOTE | 2017-07-13 16:30 | NUR ---
TRANSFUSION COMPLETE. NO REACTION NOTED. PT VS STABLE
--- NOTE | 2017-07-13 17:41 | NUR ---
AMBULATED WITH PATIENT IN HALLWAY USING A WALKER, PT TOLERATED WELL. SITTING IN CHAIR EATING DINNER. NO CHANGES THROUGHOUT SHIFT, CALL LIGHT IN REACH WILL CONTINUE TO MONITOR
--- NOTE | 2017-07-13 19:00 | NUR ---
RECEIVED PATIENT IN BED, ALERT ORIENTED NO SOB NO CHEST PAIN NOTED, NO COMPLAIN OF ANY PAIN, ASSISTED WITH TOILETING, KEPT CLEAN AND DRY. CALL LIGHT WITHIN REACH.
[2017-07-14 05:50] VITALS: BP 142/65
--- NOTE | 2017-07-14 06:01 | NUR ---
PATIENT SLEPT MOST OF THE NIGHT, NO SOB NO CHEST PAIN NOTED, ASSISTED WITH TOILETING BEDSIDE COMMODE, NO COMPLAIN OF PAIN, CALL LIGHT IN REACH.
[2017-07-14 06:08] LABS: BASOPHILS # (AUTO) 0.1 K/uL (0.0-8.0); EOSINOPHILS # (AUTO) 0.3 K/uL (0.0-0.7); EOSINOPHILS % (AUTO) 5.1 % (0.0-7.0); HEMATOCRIT 28.5 % (37-47); LYMPHOCYTES # (AUTO) 0.9 K/UL (0.8-4.8); LYMPHOCYTES % (AUTO) 15.9 % (20.5-51.5); MEAN CORPUSCULAR HEMOGLOBIN 31.9 UUG (27.0-31.0); MEAN CORPUSCULAR HGB CONC 33 g/dL (32.0-37.0); MONOCYTES # (AUTO) 0.6 K/UL (0.1-1.30); MONOCYTES % (AUTO) 10.1 % (0.0-11.0); NEUTROPHILS # (AUTO) 3.6 K/UL (1.8-8.9); NEUTROPHILS % (AUTO) 67.9 % (38.5-71.5); PLATELET COUNT (AUTO) 300 K/UL (150-450); WHITE BLOOD COUNT (AUTO) 5.5 K/UL (4.0-11.2)
[2017-07-14 06:13] LABS: ALANINE AMINOTRANSFERASE 17 U/L (14-59); ALKALINE PHOSPHATASE 53 U/L (50-136); ASPARTATE AMINOTRANSFERASE 18 U/L (15-37); BILIRUBIN,TOTAL 0.7 mg/dL (0.2-1.0); CARBON DIOXIDE 27 mmol/L (21-32); CHLORIDE 107 mmol/L (98-107); CREATININE 0.9 mg/dL (0.6-1.3); GLUCOSE 114 mg/dL (74-106); MAGNESIUM 1.8 mg/dL (1.8-2.4); POTASSIUM 3.9 mmol/L (3.5-5.1); TOTAL PROTEIN, SERUM 5.6 g/dL (6.4-8.2); UREA NITROGEN, BLOOD 6 mg/dL (7-18)
[2017-07-14 06:14] LABS: HEMOGLOBIN 9.5 G/DL (12.0-16.0); MEAN CORPUSCULAR VOLUME 95.6 FL (81.0-99.0); RED BLOOD CELL COUNT(AUTO) 2.99 MIL/UL (4.2-5.4)
[2017-07-14] MEDS: LEVOTHYROXINE SODIUM 25 MCG TABLET PO SCH (07:03)
--- NOTE | 2017-07-14 07:15 | NUR ---
PT AWAKE IN BED, IN NO ACUTE DISTRESS, NO SOB. NO NEEDS AT THIS TIME. ALL SAFETY AND COMFORT MEASURES ATTENDED TOO, BEDSIDE COMMODE WITH URINE AND STOOL EMPTIED. CALL LIGHT IN REACH WILL CONTINUE TO MONITOR
[2017-07-14] MEDS: PANTOPRAZOLE SODIUM 40 MG TABLET.DR PO SCH ×2 (08:09→17:16)
[2017-07-14] MEDS: CARVEDILOL 6.25 MG TABLET PO SCH (08:10)
[2017-07-14] MEDS: AMLODIPINE 2.5 MG TABLET PO SCH (08:10)
[2017-07-14] MEDS: Z GUARD REMEDY PASTE 57 GM TUBE TOP SCH (08:14)
[2017-07-14] MEDS: VALSARTAN 40 MG TABLET PO SCH (08:14)
--- NOTE | 2017-07-14 08:56 | NUR ---
Trigger for low BMI 13.8kg/m2, wt 170 lb, ht was documented 93", spoke to the nurse, and request to remeasure height, as [facility] 93[facility] Tolerating current diet, po intake has been improving , eating 75-100% of meals. full assessment per policy scheduled. Will monitor and f/u with Height measurements. Addendum: 07/14/17 at [address] Amended: Links added.
[2017-07-14] MEDS ORDERED: AMLODIPINE 2.5 MG TABLET PO ONE (10:30)
[2017-07-14] MEDS ORDERED: VALSARTAN 40 MG TABLET PO ONE (10:30)
[2017-07-14 11:57] VITALS: BP 144/66
--- NOTE | 2017-07-14 13:00 | NUR ---
The patient will be discharged today back to [facility] [ ; [address] [place] [address]]. Spoke to both the patient and her son, Esequiel , and they were in agreement with her discharge plan. Ioana from [facility] confirmed that they will re-admit the patient today and she will go to Room#115. Her RN, Latanya, is aware of her discharge plan and will call the report.
[2017-07-14] MEDS ORDERED: PANT40TA2 PO (14:49)
[2017-07-14] MEDS ORDERED: AMLO2.5T PO (14:49)
[2017-07-14 15:21] VITALS: BP 136/74
--- NOTE | 2017-07-14 19:28 | NUR ---
DISCHARGE PROTOCOL FOLLOWED, IV REMOVED WITH NO REDNESS OR IRRITATION NOTED. ALL BELONGINGS ACCOUNTED FOR AND SENT WITH PT. PT LEFT VIA GURNEY WITH AMBULANCE STAFF, REPORT GIVEN TO SCOTT VALDEZ
[2017-07-15] MEDS ORDERED: VALSARTAN 40 MG TABLET PO SCH (09:00)
[2017-07-15] MEDS ORDERED: AMLODIPINE 2.5 MG TABLET PO SCH (09:00)
== END 2017-07-14 19:40 | DRG 377 ==
LOC: ER 22:30 → TELE 23:55 → MED 07-13 09:15
PROVIDERS: ADMIT Nurse Practitioner Acute Care; ATTEND Nurse Practitioner Acute Care
PROC: 30233N1 Transfusion of Nonautologous Red Blood Cells into Peripheral Vein, Percutaneous Approach (ICD-10-PCS; 2017-07-11)
PROC: 0DB68ZX Excision of Stomach, Via Natural or Artificial Opening Endoscopic, Diagnostic (ICD-10-PCS; principal; 2017-07-12 08:16)
PROC: 0DJD8ZZ Inspection of Lower Intestinal Tract, Via Natural or Artificial Opening Endoscopic (ICD-10-PCS; 2017-07-12 08:16)
DX: K29.71 Gastritis, unspecified, with bleeding (principal); N17.0 Acute kidney failure with tubular necrosis; E44.0 Moderate protein-calorie malnutrition; D64.9 Anemia, unspecified; G30.9 Alzheimer's disease, unspecified; F02.80 Dementia in other diseases classified elsewhere, unspecified severity, without behavioral disturbance, psychotic disturbance, mood disturbance, and anxiety; I10 Essential (primary) hypertension; E83.42 Hypomagnesemia; E87.6 Hypokalemia; K20.9 Esophagitis, unspecified; K44.9 Diaphragmatic hernia without obstruction or gangrene; K57.30 Diverticulosis of large intestine without perforation or abscess without bleeding; Z79.01 Long term (current) use of anticoagulants; Z90.49 Acquired absence of other specified parts of digestive tract; R53.1 Weakness; E88.09 Other disorders of plasma-protein metabolism, not elsewhere classified; Z68.23 Body mass index [BMI] 23.0-23.9, adult; D50.0 Iron deficiency anemia secondary to blood loss (chronic); Z86.711 Personal history of pulmonary embolism
CPT/HCPCS: 36415; 70030-TC; 71010; 82378; 83550; 83605; 83690; 83735; 84100; 84443; 85025; 85730; 86850; 86900; 86901; 86920; 87040; 87086; 93005; A4217; A4663; J2405; J3490; J7030; J7040; J7050; P9016-BL; P9021; Q9965